=== PATIENT | female | born 1975 | race Caucasian/White ===

== ENCOUNTER 2022-04-02 10:26 | Emergency (ER) | payer OTHER ==
[~2022-04-02] VITALS: Ht 157.5 cm; Wt 82.1 kg
[2022-04-02 10:31] VITALS: BP 119/72
--- NOTE | 2022-04-02 11:00 | NUR ---
46 Y/O FEMALE BIB SELF C/O BACK PAIN X4DAYS, DENIES ANY TRAUMA/INJURY. PT STATES PAIN RADIATING FROM THE LOWER BUTTOCK TO THE MID BACK. WAS SEEN IN [facility] YESTERDAY AND RX OF LIDOCAINE PATCHES AND TYLENOL GIVEN. PMH:BACK SURGERY ALLERGIES:TORADOL, MORPHINE, NORCO, CODEINE
[2022-04-02] MEDS ORDERED: IBUP-2213 PO (11:36)
[2022-04-02] MEDS ORDERED: GABA300C PO (11:36)
--- NOTE | 2022-04-02 11:47 | NUR ---
Patient discharged with v/s stable. Written and verbal after care instructions ABOUT RADICULAR PAIN AND CERVICAL RADICULOPATHY given and explained. Patient alert, oriented and verbalized understanding of instructions. Ambulatory with steady gait. All questions addressed prior to discharge. ID band removed. Patient advised to follow up with PMD. Rx of MOTRIN AND GABAPENTIN given. Patient educated on indication of medication including possible reaction and side effects. Opportunity to ask questions provided and answered.
== END 2022-04-02 11:47 | disposition home or self-care (01) ==
LOC: MED 10:26
DX: S39.012A Strain of muscle, fascia and tendon of lower back, initial encounter (principal); M54.16 Radiculopathy, lumbar region; M54.12 Radiculopathy, cervical region; Z88.5 Allergy status to narcotic agent; Z88.8 Allergy status to other drugs, medicaments and biological substances; Z98.890 Other specified postprocedural states; X50.0XXA Overexertion from strenuous movement or load, initial encounter; Y93.89 Activity, other specified; Y92.89 Other specified places as the place of occurrence of the external cause; Y99.0 Civilian activity done for income or pay
CPT/HCPCS: 99283